=== PATIENT | female | born 1955 | race Caucasian/White ===

== ENCOUNTER 2020-08-26 11:10 | Inpatient (IN) ==
[2020-08-26] MEDS ORDERED: Ondansetron 4 MG/2 ML VIAL IVP PRN (13:44)
[2020-08-26] MEDS ORDERED: Naloxone 0.4 MG/ML INJ IVP PRN (13:44)
[2020-08-26] MEDS ORDERED: D5% in Water 1,000 ML IVC PRN (13:53)
[2020-08-26] MEDS ORDERED: Dextrose Gel 15 GM/37.5 ML TUBE PO PRN ×2 (13:53)
[2020-08-26] MEDS ORDERED: *HR* HYDROmorphone (PF) 1 MG/ML SYRINGE IVP PRN ×2 (13:56→15:38)
[2020-08-26] MEDS: Ringers Solution, Lactated 1,000 ML IVC SCH ×2 (14:28→18:31)
[2020-08-26 15:21] LABS: Chol/HDL Ratio 3.3 (0-4.9)
[2020-08-26] MEDS: *HR* HYDROmorphone 2 MG/ML SYRINGE IVP PRN ×3 (16:12→23:14)
[2020-08-26] MEDS: Insulin LISPRO 300 UNITS/3 ML VIAL SUBQ SCH (18:44)
[2020-08-26] MEDS ORDERED: Isovue-370 500 ML BOTTLE IVP ONE (19:15)
[2020-08-27] MEDS: Ampicillin/Sulbactam 3,000 MG in 0.9 % Sodium Chloride Mini Bag 100 ML IVPB SCH ×3 (00:08→12:31)
[2020-08-27] MEDS: Insulin LISPRO 300 UNITS/3 ML VIAL SUBQ SCH ×5 (00:50→23:45)
[2020-08-27] MEDS: *HR* HYDROmorphone 2 MG/ML SYRINGE IVP PRN ×2 (04:46→08:36)
[2020-08-27 05:41] LABS: Basophils % 0.2 %; Hematocrit 42.6 % (35.3-44.9); Hemoglobin 13.6 g/dL (11.5-15.4); Immature Granulocytes % 0.3 % (0-4); Lymphocytes # 0.6 K/mcL (0.6-4.6); Mean Corpuscular HGB Conc 31.9 g/dL (31.6-35.5); Mean Corpuscular Hemoglobin 30.3 pg (28.0-33.3); Mean Corpuscular Volume 94.9 fL (83.0-100.0); Mean Platelet Volume 10.7 fL (9.4-12.4); Monocytes # 0.5 K/mcL (0.0-1.3); Monocytes % 3.8 %; Platelet Count 242 K/mcL (140-400); Red Blood Count 4.49 M/mcL (3.82-4.97); Segmented Neutrophils % 90.7 %; White Blood Count 12.5 K/mcL (4.3-11.1)
[2020-08-27 05:47] LABS: Neutrophils # 11.3 K/mcL (1.6-8.9)
[2020-08-27 06:05] LABS: Platelet Estimate Normal (Normal)
[2020-08-27] MEDS ORDERED: Ondansetron 4 MG/2 ML VIAL ONE (07:03)
[2020-08-27] MEDS ORDERED: Lidocaine -MPF 4% 5 ML AMPUL ONE (07:03)
[2020-08-27] MEDS ORDERED: Lidocaine -MPF 2% 2 ML VIAL ONE (07:03)
[2020-08-27] MEDS ORDERED: *HR* Succinylcholine 200 MG/10 ML VIAL IVP ONE (07:03)
[2020-08-27] MEDS ORDERED: *HR* Rocuronium Bromide 50 MG/5 ML VIAL ONE (07:03)
[2020-08-27] MEDS ORDERED: *HR* Midazolam HCl 2 MG/2 ML VIAL ONE (07:04)
[2020-08-27] MEDS ORDERED: *HR* FentaNYL (PF) 100 MCG/2 ML VIAL ONE (07:04)
[2020-08-27] MEDS ORDERED: *HR* Propofol 200 MG/20 ML VIAL IVP ONE (07:04)
[2020-08-27] MEDS ORDERED: Ringers Solution, Lactated 1,000 ML IVC SCH (07:45)
[2020-08-27] MEDS: Pantoprazole 40 MG VIAL IVP SCH (08:28)
[2020-08-27 08:32] LABS: Albumin 3.9 g/dL (3.5-5.7); Albumin/Globulin Ratio 1.7 (1.1-2.2); Bilirubin,Direct 0.3 mg/dL (0.0-0.2); Bilirubin,Indirect 0.6 mg/dL (0.0-1.0); Bilirubin,Total 0.9 mg/dL (0.3-1.0); Calcium 8.5 mg/dL (8.6-10.3); Globulin 2.3 g/dL (2.4-3.5); Potassium 5.8 mEq/L (3.5-5.1); Total Protein 6.2 g/dL (6.4-8.9)
[2020-08-27] MEDS ORDERED: Isovue-370 500 ML BOTTLE IVP ONE (09:14)
[2020-08-27 09:50] LABS: ABG Base Excess -1 mEq/L (-2 to 3); ABG HCO3 27 mEq/L (21-27); ABG Oxygen Saturation 91 % (95-98); ABG PCO2 60 mmHg (35-45); ABG PH 7.26 pH Units (7.32-7.45); ABG PO2 71 mmHg (85-104); ABG TCO2 29 mEq/L (20-26)
[2020-08-27] MEDS ORDERED: Insulin Human Regular 10 UNIT in 0.9 % Sodium Chloride 10 ML IV ONE (12:03)
[2020-08-27] MEDS ORDERED: *HR* Dextrose 50 % in Water (Vial) 50 ML VIAL IVP ONE (12:03)
[2020-08-27] MEDS ORDERED: Perflutren Lipid Microsphere 1.3 ML in 0.9 % Sodium Chloride 8.7 ML IVP PRN (12:33)
[2020-08-27] MEDS ORDERED: Vancomycin 1,250 MG/262.5 ML IV.SOLN IVPB ONE (13:00)
[2020-08-27] MEDS: *HR* Dextrose 50 % in Water (Vial) 50 ML VIAL IVP PRN ×2 (14:45→15:07)
[2020-08-27] MEDS: Ipratropium/Albuterol Neb 3 ML IH SCH ×2 (14:54→22:38)
[2020-08-27] MEDS: 0.9 % Sodium Chloride 1,000 ML IVC SCH ×2 (18:54→23:12)
[2020-08-27] MEDS: *HR* HYDROmorphone (PF) 1 MG/ML SYRINGE IVP PRN ×2 (19:36→23:04)
[2020-08-28] MEDS: Ipratropium/Albuterol Neb 3 ML IH SCH ×4 (04:05→21:35)
[2020-08-28] MEDS: Insulin LISPRO 300 UNITS/3 ML VIAL SUBQ SCH ×3 (05:07→17:49)
[2020-08-28] MEDS: 0.9 % Sodium Chloride 1,000 ML IVC SCH ×4 (05:11→22:15)
[2020-08-28] MEDS: *HR* HYDROmorphone (PF) 1 MG/ML SYRINGE IVP PRN ×2 (05:58→16:42)
[2020-08-28] MEDS: Pantoprazole 40 MG VIAL IVP SCH (08:14)
[2020-08-28] MEDS ORDERED: *HR* Vasopressin 20 UNIT/ML VIAL ONE (08:29)
[2020-08-28] MEDS ORDERED: Lidocaine -MPF 4% 5 ML AMPUL ONE (08:39)
[2020-08-28] MEDS ORDERED: *HR* Propofol 200 MG/20 ML VIAL IVP ONE (08:42)
[2020-08-28] MEDS ORDERED: *HR* Rocuronium Bromide 50 MG/5 ML VIAL ONE (08:43)
[2020-08-28] MEDS ORDERED: Ondansetron 4 MG/2 ML VIAL ONE (08:43)
[2020-08-28] MEDS ORDERED: *HR* Succinylcholine 200 MG/10 ML VIAL IVP ONE (08:43)
[2020-08-28] MEDS ORDERED: Lidocaine -MPF 2% 5 ML VIAL ONE (08:43)
[2020-08-28] MEDS ORDERED: *HR* FentaNYL (PF) 100 MCG/2 ML VIAL ONE (08:43)
[2020-08-28 09:59] LABS: Hematocrit 34.6 % (35.3-44.9); Mean Corpuscular HGB Conc 31.8 g/dL (31.6-35.5); Mean Corpuscular Hemoglobin 30.4 pg (28.0-33.3); Mean Corpuscular Volume 95.6 fL (83.0-100.0); Mean Platelet Volume 10.3 fL (9.4-12.4); Platelet Count 154 K/mcL (140-400); Red Blood Count 3.62 M/mcL (3.82-4.97); Red Cell Distribution Width 14.5 % (11.5-14.5); White Blood Count 8.7 K/mcL (4.3-11.1)
[2020-08-28] MEDS ORDERED: *HR* Metoprolol 5 MG/5 ML VIAL IVP ONE (10:16)
[2020-08-28 10:18] LABS: BUN/Creatinine Ratio 36 (6-26); Blood Urea Nitrogen 26 mg/dL (8-23); Calcium 8.4 mg/dL (8.6-10.3); Carbon Dioxide 24 mEq/L (23-29); Chloride 109 mEq/L (98-107); Glucose 105 mg/dL (70-105); Magnesium 1.8 mg/dL (1.6-2.6); Osmolality,Calculated 299 (280-300); Phosphorous 1.7 mg/dL (2.7-4.5); Potassium 4.2 mEq/L (3.5-5.1); Sodium 142 mEq/L (136-145); eGFR For African Americans > 60 (> 60); eGFR For Non-African Americans > 60 (> 60)
[2020-08-28] MEDS ORDERED: Albuterol 2.5 MG/3 ML NEBULIZER ONE (11:03)
[2020-08-28] MEDS ORDERED: Albuterol 2.5 MG/3 ML NEBULIZER IH ONE (11:06)
[2020-08-28 11:45] LABS: Lymphocytes # 1.4 K/mcL (0.6-4.6); Monocytes # 0.2 K/mcL (0.0-1.3); Neutrophils # 7.1 K/mcL (1.6-8.9); Platelet Estimate Normal (Normal)
[2020-08-28] MEDS: Piperacillin/Tazobactam 3.375 GM in 0.9 % Sodium Chloride Mini Bag 100 ML IVPB SCH (14:15)
[2020-08-29] MEDS: Piperacillin/Tazobactam 3.375 GM in 0.9 % Sodium Chloride Mini Bag 100 ML IVPB SCH ×3 (00:17→16:53)
[2020-08-29] MEDS: Insulin LISPRO 300 UNITS/3 ML VIAL SUBQ SCH ×4 (00:18→16:54)
[2020-08-29 02:19] LABS: Basophils % 0.1 %; Hematocrit 33.1 % (35.3-44.9); Hemoglobin 10.4 g/dL (11.5-15.4); Immature Granulocytes % 0.9 % (0-4); Lymphocytes # 0.6 K/mcL (0.6-4.6); Lymphocytes % 6.5 %; Mean Corpuscular HGB Conc 31.4 g/dL (31.6-35.5); Mean Corpuscular Hemoglobin 29.9 pg (28.0-33.3); Mean Corpuscular Volume 95.1 fL (83.0-100.0); Mean Platelet Volume 10.3 fL (9.4-12.4); Monocytes # 0.5 K/mcL (0.0-1.3); Neutrophils # 8.6 K/mcL (1.6-8.9); Platelet Count 164 K/mcL (140-400); Red Blood Count 3.48 M/mcL (3.82-4.97); Red Cell Distribution Width 14.1 % (11.5-14.5); Segmented Neutrophils % 87.5 %; White Blood Count 9.8 K/mcL (4.3-11.1)
[2020-08-29 02:43] LABS: BUN/Creatinine Ratio 29 (6-26); Blood Urea Nitrogen 18 mg/dL (8-23); Calcium 8.4 mg/dL (8.6-10.3); Carbon Dioxide 24 mEq/L (23-29); Chloride 108 mEq/L (98-107); Glucose 104 mg/dL (70-105); Magnesium 1.8 mg/dL (1.6-2.6); Osmolality,Calculated 294 (280-300); Phosphorous 1.9 mg/dL (2.7-4.5); Potassium 4.1 mEq/L (3.5-5.1); Sodium 141 mEq/L (136-145); eGFR For African Americans > 60 (> 60); eGFR For Non-African Americans > 60 (> 60)
[2020-08-29] MEDS: 0.9 % Sodium Chloride 1,000 ML IVC SCH ×2 (03:04→12:12)
[2020-08-29] MEDS: Ipratropium/Albuterol Neb 3 ML IH SCH ×4 (03:32→22:26)
[2020-08-29] MEDS ORDERED: *HR* HYDROmorphone PF 0.5 MG/0.5 ML SYRINGE IVP PRN (08:04)
[2020-08-29] MEDS ORDERED: Ondansetron 4 MG/2 ML VIAL IVP PRN ×2 (08:04→10:43)
[2020-08-29] MEDS ORDERED: *HR* Midazolam HCl 2 MG/2 ML VIAL ONE (09:08)
[2020-08-29] MEDS ORDERED: *HR* FentaNYL (PF) 100 MCG/2 ML VIAL ONE (09:08)
[2020-08-29] MEDS ORDERED: Lidocaine -MPF 2% 2 ML VIAL ONE (09:08)
[2020-08-29] MEDS ORDERED: Ondansetron 4 MG/2 ML VIAL ONE (09:08)
[2020-08-29] MEDS ORDERED: *HR* Propofol 200 MG/20 ML VIAL IVP ONE (09:09)
[2020-08-29] MEDS ORDERED: Lidocaine HCL 4 ML Topical Solution (Laryng-O-Jet Kit Sterile Pak) TP ONE (09:09)
[2020-08-29] MEDS ORDERED: *HR* Rocuronium Bromide 50 MG/5 ML VIAL ONE (09:09)
[2020-08-29] MEDS ORDERED: *HR* Succinylcholine 200 MG/10 ML VIAL IVP ONE (09:09)
[2020-08-29] MEDS: Pantoprazole 40 MG VIAL IVP SCH (09:10)
[2020-08-29] MEDS ORDERED: Acetaminophen IV 1,000 MG/100 ML BAG IVPB ONE (09:13)
[2020-08-29] MEDS ORDERED: Famotidine 20 MG/2 ML VIAL ONE (09:13)
[2020-08-29] MEDS ORDERED: Albuterol 2.5 MG/3 ML NEBULIZER ONE (09:17)
[2020-08-29] MEDS ORDERED: Lidocaine -MPF 4% 5 ML AMPUL ONE (09:23)
[2020-08-29] MEDS ORDERED: Sugammadex Sodium 200 MG/2 ML VIAL IV ONE (09:46)
[2020-08-29] MEDS ORDERED: *HR* Dextrose 50 % in Water (Vial) 50 ML VIAL IVP PRN (10:43)
[2020-08-29] MEDS ORDERED: *HR* HYDROmorphone (PF) 1 MG/ML SYRINGE IVP PRN ×2 (10:43)
[2020-08-29] MEDS ORDERED: Dextrose Gel 15 GM/37.5 ML TUBE PO PRN ×2 (10:43)
[2020-08-29] MEDS ORDERED: D5% in Water 1,000 ML IVC PRN (10:43)
[2020-08-29] MEDS ORDERED: Naloxone 0.4 MG/ML INJ IVP PRN (10:43)
[2020-08-29] MEDS: *HR* HYDROmorphone PF 0.5 MG/0.5 ML SYRINGE IVP PRN ×3 (10:52→11:16)
[2020-08-29] MEDS ORDERED: *HR* Labetalol 20 MG/4 ML SYRINGE IVP STA (10:55)
[2020-08-29] MEDS ORDERED: *HR* Labetalol 20 MG/4 ML SYRINGE IVP ONE (10:57)
[2020-08-29] MEDS: *HR* HYDROmorphone (PF) 1 MG/ML SYRINGE IVP PRN (22:30)
[2020-08-30] MEDS: Piperacillin/Tazobactam 3.375 GM in 0.9 % Sodium Chloride Mini Bag 100 ML IVPB SCH ×3 (00:15→17:18)
[2020-08-30] MEDS: Insulin LISPRO 300 UNITS/3 ML VIAL SUBQ SCH ×4 (00:24→19:32)
[2020-08-30] MEDS: 0.9 % Sodium Chloride 1,000 ML IVC SCH ×3 (01:40→10:19)
[2020-08-30] MEDS: Ipratropium/Albuterol Neb 3 ML IH SCH ×4 (03:42→21:43)
[2020-08-30 05:21] LABS: Basophils % 0.2 %; Hematocrit 30.3 % (35.3-44.9); Hemoglobin 9.9 g/dL (11.5-15.4); Immature Granulocytes % 2.6 % (0-4); Lymphocytes # 0.8 K/mcL (0.6-4.6); Lymphocytes % 9.5 %; Mean Corpuscular HGB Conc 32.7 g/dL (31.6-35.5); Mean Corpuscular Hemoglobin 30.5 pg (28.0-33.3); Mean Corpuscular Volume 93.2 fL (83.0-100.0); Mean Platelet Volume 9.9 fL (9.4-12.4); Monocytes # 0.4 K/mcL (0.0-1.3); Monocytes % 5.2 %; Neutrophils # 6.9 K/mcL (1.6-8.9); Platelet Count 178 K/mcL (140-400); Red Blood Count 3.25 M/mcL (3.82-4.97); Red Cell Distribution Width 13.7 % (11.5-14.5); Segmented Neutrophils % 82.5 %; White Blood Count 8.4 K/mcL (4.3-11.1)
[2020-08-30 05:37] LABS: BUN/Creatinine Ratio 21 (6-26); Blood Urea Nitrogen 15 mg/dL (8-23); Calcium 8.3 mg/dL (8.6-10.3); Carbon Dioxide 27 mEq/L (23-29); Chloride 106 mEq/L (98-107); Glucose 106 mg/dL (70-105); Magnesium 1.9 mg/dL (1.6-2.6); Osmolality,Calculated 289 (280-300); Phosphorous 2.2 mg/dL (2.7-4.5); Potassium 3.7 mEq/L (3.5-5.1); Sodium 139 mEq/L (136-145); eGFR For African Americans > 60 (> 60); eGFR For Non-African Americans > 60 (> 60)
[2020-08-30] MEDS ORDERED: Pantoprazole 40 MG VIAL IVP SCH (09:00)
[2020-08-30] MEDS: Calcium Gluconate 1gm/50mL 1 GM/50 ML BAG IVPB SCH ×2 (12:27→17:53)
[2020-08-30] MEDS ORDERED: Furosemide 40 MG/4 ML VIAL IVP STA (15:17)
[2020-08-30] MEDS ORDERED: Gabapentin 300 MG CAPSULE PO PRN (15:33)
[2020-08-30] MEDS: carvediloL 6.25 MG TABLET PO SCH (17:20)
[2020-08-30] MEDS: *HR* HYDROmorphone (PF) 1 MG/ML SYRINGE IVP PRN (20:47)
[2020-08-31] MEDS: Insulin LISPRO 300 UNITS/3 ML VIAL SUBQ SCH ×4 (00:44→20:29)
[2020-08-31] MEDS: Piperacillin/Tazobactam 3.375 GM in 0.9 % Sodium Chloride Mini Bag 100 ML IVPB SCH ×4 (00:53→20:39)
[2020-08-31] MEDS: Ipratropium/Albuterol Neb 3 ML IH SCH ×4 (03:53→22:41)
[2020-08-31 04:48] LABS: Basophils # 0.1 K/mcL (0.0-0.2); Basophils % 0.6 %; Eosinophils % 0.4 %; Hematocrit 33.3 % (35.3-44.9); Hemoglobin 10.8 g/dL (11.5-15.4); Lymphocytes # 1.2 K/mcL (0.6-4.6); Lymphocytes % 13.3 %; Mean Corpuscular HGB Conc 32.4 g/dL (31.6-35.5); Mean Corpuscular Hemoglobin 29.4 pg (28.0-33.3); Mean Corpuscular Volume 90.7 fL (83.0-100.0); Mean Platelet Volume 9.8 fL (9.4-12.4); Monocytes # 0.8 K/mcL (0.0-1.3); Monocytes % 8.9 %; Neutrophils # 6.8 K/mcL (1.6-8.9); Platelet Count 203 K/mcL (140-400); Red Blood Count 3.67 M/mcL (3.82-4.97); Red Cell Distribution Width 13.2 % (11.5-14.5); Segmented Neutrophils % 73.8 %; White Blood Count 9.3 K/mcL (4.3-11.1)
[2020-08-31 04:58] LABS: Magnesium 1.5 mg/dL (1.6-2.6); Phosphorous 2.3 mg/dL (2.7-4.5)
[2020-08-31 05:02] LABS: % Iron Saturation 5 % (15-50); Alanine Aminotransferase 50 Units/L (7-52); Albumin 3.3 g/dL (3.5-5.7); Albumin/Globulin Ratio 1.4 (1.1-2.2); Alkaline Phosphatase 48 Units/L (34-104); Aspartate Amino Transferase 34 Units/L (13-39); BUN/Creatinine Ratio 16 (6-26); Bilirubin,Total 0.7 mg/dL (0.3-1.0); Blood Urea Nitrogen 12 mg/dL (8-23); Calcium 8.6 mg/dL (8.6-10.3); Carbon Dioxide 30 mEq/L (23-29); Chloride 103 mEq/L (98-107); Globulin 2.4 g/dL (2.4-3.5); Glucose 88 mg/dL (70-105); Iron 15 mcg/dL (50-170); Osmolality,Calculated 287 (280-300); Sodium 139 mEq/L (136-145); Total Protein 5.7 g/dL (6.4-8.9); Transferrin 206 mg/dL (203-362); eGFR For African Americans > 60 (> 60); eGFR For Non-African Americans > 60 (> 60)
[2020-08-31 05:14] LABS: Thyroid Stimulating Hormone 4.686 mcIU/mL (0.340-5.600)
[2020-08-31 05:20] LABS: Ferritin 109 ng/mL (10-120)
[2020-08-31 05:39] LABS: Folate > 22.3 ng/mL (3.0-16.0); Vitamin B12 541 pg/mL (250-1100)
[2020-08-31] MEDS ORDERED: Melatonin 3 MG TABLET PO PRN (07:56)
[2020-08-31] MEDS ORDERED: Iron Sucrose Complex 400 MG in 0.9 % Sodium Chloride 250 ML IVPB ONE (07:56)
[2020-08-31] MEDS ORDERED: atenoloL 25 MG TABLET PO SCH (09:00)
[2020-08-31] MEDS: Lactobacillus 1 EACH CAP.SPRINK PO SCH ×2 (09:56→20:20)
[2020-08-31] MEDS: carvediloL 6.25 MG TABLET PO SCH ×2 (09:56→22:35)
[2020-08-31] MEDS: Aspirin Enteric Coated 81 MG Tablet PO SCH (09:56)
[2020-08-31] MEDS: Multivit/Ca/Min/Fe/FA 1 TAB TABLET PO SCH ×2 (09:57→12:24)
[2020-08-31 18:59] LABS: Adenovirus F 40/41 PCR Not detected (Not detect); Astrovirus PCR Not detected (Not detect); C.difficile Toxin A/B Gene PCR Not detected (Not detect); Campylobacter by PCR Not detected (Not detect); Cryptosporidium by PCR Not detected (Not detect); Cyclospora cayetanensis PCR Not detected (Not detect); E. coli O157 by PCR Not detected (Not detect); Entamoeba histolytica PCR Not detected (Not detect); Enteroaggregative E.coli(EAEC) Not detected (Not detect); Enteropathogenic E.coli(EPEC) Not detected (Not detect); Enterotoxigenic E.coli (ETEC) Not detected (Not detect); Giardia lamblia PCR Not detected (Not detect); Norovirus GI/GII PCR Not detected (Not detect); Plesiomonas shigelloides PCR Not detected (Not detect); Rotavirus A PCR Not detected (Not detect); Salmonella PCR Not detected (Not detect); Sapovirus PCR Not detected (Not detect); Shig/EnteroinvasiveE coli EIEC Not detected (Not detect); Shigalike tox-prod E coli STEC Not detected (Not detect); Vibrio PCR Not detected (Not detect); Vibrio cholerae PCR Not detected (Not detect); Yersinia enterocolitica PCR Not detected (Not detect)
[2020-08-31] MEDS ORDERED: Furosemide 20 MG/2 ML VIAL IVP ONE (19:58)
[2020-08-31] MEDS: *HR* HYDROmorphone (PF) 1 MG/ML SYRINGE IVP PRN (22:33)
[2020-08-31] MEDS: Ondansetron 4 MG/2 ML VIAL IVP PRN (22:35)
[2020-09-01] MEDS: Insulin LISPRO 300 UNITS/3 ML VIAL SUBQ SCH ×3 (00:09→16:13)
[2020-09-01 03:19] LABS: Basophils # 0.1 K/mcL (0.0-0.2); Basophils % 0.5 %; Eosinophils # 0.1 K/mcL (0.0-0.6); Eosinophils % 0.5 %; Hematocrit 32.2 % (35.3-44.9); Immature Granulocytes % 4.7 % (0-4); Lymphocytes # 1.1 K/mcL (0.6-4.6); Lymphocytes % 8.1 %; Mean Corpuscular HGB Conc 34.2 g/dL (31.6-35.5); Mean Corpuscular Hemoglobin 30.1 pg (28.0-33.3); Mean Platelet Volume 9.9 fL (9.4-12.4); Monocytes # 0.7 K/mcL (0.0-1.3); Monocytes % 5.6 %; Neutrophils # 10.6 K/mcL (1.6-8.9); Nucleated Red Blood Cells 0.2 /100 WBC (0); Platelet Count 196 K/mcL (140-400); Red Blood Count 3.66 M/mcL (3.82-4.97); Red Cell Distribution Width 12.9 % (11.5-14.5); Segmented Neutrophils % 80.6 %; White Blood Count 13.1 K/mcL (4.3-11.1)
[2020-09-01 03:39] LABS: Alanine Aminotransferase 47 Units/L (7-52); Albumin 3.4 g/dL (3.5-5.7); Albumin/Globulin Ratio 1.4 (1.1-2.2); Alkaline Phosphatase 53 Units/L (34-104); Aspartate Amino Transferase 28 Units/L (13-39); BUN/Creatinine Ratio 15 (6-26); Bilirubin,Total 0.7 mg/dL (0.3-1.0); Blood Urea Nitrogen 10 mg/dL (8-23); Calcium 8.4 mg/dL (8.6-10.3); Carbon Dioxide 27 mEq/L (23-29); Chloride 101 mEq/L (98-107); Globulin 2.4 g/dL (2.4-3.5); Glucose 101 mg/dL (70-105); Osmolality,Calculated 283 (280-300); Potassium 3.2 mEq/L (3.5-5.1); Sodium 137 mEq/L (136-145); Total Protein 5.8 g/dL (6.4-8.9); eGFR For African Americans > 60 (> 60); eGFR For Non-African Americans > 60 (> 60)
[2020-09-01 03:42] LABS: Magnesium 1.9 mg/dL (1.6-2.6); Phosphorous 4.3 mg/dL (2.7-4.5)
[2020-09-01] MEDS: Ipratropium/Albuterol Neb 3 ML IH SCH ×3 (05:37→15:59)
[2020-09-01] MEDS: Piperacillin/Tazobactam 3.375 GM in 0.9 % Sodium Chloride Mini Bag 100 ML IVPB SCH ×2 (06:11→16:11)
[2020-09-01] MEDS: Ondansetron 4 MG/2 ML VIAL IVP PRN (06:58)
[2020-09-01] MEDS: Aspirin Enteric Coated 81 MG Tablet PO SCH (09:24)
[2020-09-01] MEDS: carvediloL 6.25 MG TABLET PO SCH ×2 (09:24→16:13)
[2020-09-01] MEDS: Multivit/Ca/Min/Fe/FA 1 TAB TABLET PO SCH ×2 (09:24→16:14)
[2020-09-01] MEDS: Lactobacillus 1 EACH CAP.SPRINK PO SCH (09:25)
[2020-09-01 11:14] VITALS: BP 129/82
[2020-09-01] MEDS ORDERED: DAPTOmycin 400 MG in 0.9 % Sodium Chloride 100 ML IVPB ONE (14:00)
== END 2020-09-01 18:37 | disposition home health service (06) | DRG 853 ==
LOC: 3ANU → SUATTDRO 08-27 08:03 → 2NNU 08-27 18:08 → 3NENU 08-29 14:37
PROVIDERS: ADMIT Internal Medicine; ATTEND Family Medicine